=== PATIENT | male | born 1985 | race Two or more races ===

== ENCOUNTER 2022-07-26 11:09 | Emergency (ER) | payer OTHER ==
[2022-07-26] MEDS ORDERED: Tetracaine HCl/PF 0.5% 4 ML Bottle EYEBOTH ONE (12:03)
[2022-07-26] MEDS ORDERED: Erythromycin Base 0.5% Ophth Oint 1 GM Tube EYEBOTH ONE (12:58)
== END 2022-07-26 13:24 | disposition home or self-care (01) ==
LOC: MW.ED 11:09
DX: T51.1X1A Toxic effect of methanol, accidental (unintentional), initial encounter (principal); T26.91XA Corrosion of right eye and adnexa, part unspecified, initial encounter; Z72.0 Tobacco use; Y92.89 Other specified places as the place of occurrence of the external cause; Y99.0 Civilian activity done for income or pay
CPT/HCPCS: 99283; A9270; J3490